=== PATIENT | female | born 1990 | race Caucasian/White ===

== ENCOUNTER 2019-07-30 17:15 | Inpatient (IN) | payer OTHER ==
[~2019-07-30] VITALS: Ht 162.6 cm; Wt 104.0 kg
[2019-07-30] MEDS ORDERED: LACTATED RINGER'S 1000 ML IV STA (17:50)
[2019-07-30] MEDS ORDERED: LR 1,000 ML IV SCH (17:50)
[2019-07-30] MEDS ORDERED: CLINDAMYCIN 900 MG in IV 1 EA IV SCH (18:00)
[2019-07-30] MEDS ORDERED: VANCOMYCIN HCL 1,000 MG, VIAL MATE ADAPTER 1 EACH in D5W 250 ML IV SCH (18:00)
[2019-07-30 18:16] VITALS: BP 137/79
[2019-07-30 18:35] LABS: BASO % 0.3 % (0.0-1.0); EOS # 0.1 10^3/uL (0.0-0.5); EOS % 0.7 % (0.0-3.0); HEMOGLOBIN 10.1 g/dl (12.0-15.5); LYMPH # 1.6 10^3/uL (1.5-5.0); LYMPH % 11.4 % (24.0-44.0); MEAN CORPUSCULAR HGB CONC 31.6 g/dl (32.0-36.5); MEAN CORPUSCULAR VOLUME 82.3 fl (80.0-96.0); MONO # 0.7 10^3/uL (0.0-0.8); MONO % 5.2 % (0.0-5.0); NEUTROPHILS # 11.1 10^3/uL (1.5-8.5); NEUTROPHILS % 81.4 % (36.0-66.0); PLATELET COUNT, AUTOMATED 252 10^3/uL (150-450); RED BLOOD COUNT 3.89 10^6/uL (4.00-5.40); WHITE BLOOD COUNT 13.6 10^3/uL (4.0-10.0)
[2019-07-30 18:39] VITALS: BP 136/79
[2019-07-30] MEDS ORDERED: FENTANYL 2MCG/ML ROPIVACAINE 0.2% IN 0.9% NACL 100ML IVBAG As Ordered ONE (19:20)
--- NOTE | 2019-07-30 19:27 | HPEPDOC ---
Obstetrical History & Physical General Date of Admission Jul 30, 2019 at 18:01 History of Present Illness Patient is a 29-year-old G2, P1 at 40.3 weeks by redating 13 week ultrasound. She complains of contractions since 4:30 AM they became stronger and more consistent since 4 PM today. No loss of fluid or bleeding. Good movement. Chief Complaint: Contractions, term Information Provided By: Patient Care Care: Good Care Dating Final EDC: Jul 27, 2019 Final EDC by: 1st trimester (US) Antepartum Course Height (inches): 64 Pre- weight (lbs.): 194 Admission Weight (lbs.): 228 Change in Weight (lbs.): 34 Past Medical History Past Obstetrical History : Past Obstetrical History: Multigravida (2017 FT [id number]) [employer]ER History: No pertinent history Past Medical History Medical History none Surgical History: Ernest teeth Family History Significant Family History: No pertinent family hx Social History Marital Status: Family situation: Spouse/partner home Psychosocial History: No pertinent psych hx * Smoker: non-smoker Alcohol: Denies Drugs: denies Abuse Violence Screening Have you been hit/kicked/slapp: No Have you been sexually assault: No Imunizations Tdap status: current Influenza Status: current Allergies Coded Allergies: amoxicillin (Verified Allergy, Unknown, 07/30/19) Medications No Active Prescriptions or Reported Meds Physical Examination Physical Examination GENERAL: Alert and oriented times three. BREAST: . ABDOMEN: Gravid and non-tender to touch. FETUS: Is vertex (VTX) by sterile vaginal examination (SVE). HEART RATE: Regular rate and rhythm. LUNGS: Clear to auscultation (CTA). EXTREMITIES: No edema. Vital Signs/I&O Vital Signs Date Time Temp Pulse Resp B/P (MAP) Pulse Ox O2 Delivery O2 Flow Rate FiO2 07/30/19 18:39 94 20 136/79 (98) 07/30/19 18:16 98.0 Room Air Laboratory Data 24H LABS Laboratory Tests 2 07/30/19 18:08: Immature Granulocyte % (Auto) 1.0, Neutrophils (%) (Auto) 81.4H, Lymphocytes (%) (Auto) 11.4L, Monocytes (%) (Auto) 5.2H, Eosinophils (%) (Auto) 0.7, Basophils (%) (Auto) 0.3, Neutrophils # (Auto) 11.1H, Lymphocytes # (Auto) 1.6, Monocytes # (Auto) 0.7, Eosinophils # (Auto) 0.1, Basophils # (Auto) 0.0, Nucleated Red Blood Cells % (auto) 0.0 CBC/BMP Laboratory Tests 07/30/19 18:08 Pertinent Laboratoy Data Blood Type: B+ RBC Antibody Screen: Negative HIV: Negative Hepatitis B: Negative Hepatitis C: Negative Rapid Plasma Reagin: Nonreactive Rubella: Immune Chlamydia/Gonorrhea: Negative Group B Streptococcus: Positive (Clinda resistant) Glucose Tolerance Test: 77 Anatomy Ultrasound Ultrasound Date: Mar 15, 2019 Placenta Location: Anterior Normal Anatomy: Yes Placenta Previa: No Estimated Weight (grams): 371 Steroid Therapy Steroid Therapy: No Vaginal Examination Dilation: 8 cm Effacement: 100% Station: 0 Cervical Consistency: Soft Cervical Position: Anterior Presentation: Cephalic presentation Assessment Variability: Moderate Accelerations: Positive Decelerations: None Tocometer Contractions: Yes Frequency: regular, every 2-5 min. Strength: palpated as strong Multi-drug resistant Organism: No history of MDRO Assessment/Plan Assessment Patient is a 29-year-old G2, P1 at 40.3 weeks by redating 13 week ultrasound. Admit for active labor and expect delivery by . Pain management per patient preference, which was discussed with her. I discussed risks of with patient of failure with section, distress, bleeding, infection, , vaginal or perineal or neighboring organ tear. Currently, fetus is reassuring. GBS is positive and resistant to clindamycin,. There is a need for antibiotics, specifically vancomycin. Plan Admit and orient. Info Print Press Operator and consent. Diet: Clear. Group B Streptococcus (GBS) positive requiring vancomycin. Labs and intravenous (IV) per unit protocol. Counseled on Pitocin and induction of labor (IOL). Lactated Ringers (LR): Bolus 500 mL, then at, 125 mL/hr. Anticipate normal spontaneous delivery (). Pain management per patient preference Katharine Wood MD Jul 30, 2019 19:27
[2019-07-30] MEDS ORDERED: BUTORPHANOL 2 MG/ML INJ (J0595) IV PRN (19:30)
[2019-07-30] MEDS ORDERED: SIMETHICONE 80 MG CHEW TAB PO PRN (19:30)
[2019-07-30] MEDS ORDERED: PROMETHAZINE INJ 25 MG/ML VIAL (J2550) IV PRN (19:30)
[2019-07-30] MEDS ORDERED: CALCIUM CARBONATE 500 MG CHEW U/D PO PRN (19:30)
[2019-07-30] MEDS ORDERED: MOM 30ML SUSPENSION UDC PO PRN (19:30)
[2019-07-30] MEDS ORDERED: OXYTOCIN 30 UNITS IN 0.9% NaCl 500ML IV BAG (J2590) As Ordered ONE (19:44)
[2019-07-30] MEDS ORDERED: OXYTOCIN DRIP 30 UNITS in IV 1 EA IV SCH (20:19)
--- NOTE | 2019-07-30 20:19 | DNPDOC ---
[facility] Delivery Note Delivery Note DATE OF DELIVERY: 07/30/2019 PREDELIVERY DIAGNOSIS: 40-3/7 weeks' gestation and labor. POST DELIVERY DIAGNOSIS: Delivered. PROCEDURE:. Spontaneous vaginal delivery, precipitous. COMPLIANCE MONITOR: Dr. Wood ANESTHESIA: None. ESTIMATED BLOOD LOSS:. 700 mL. FINDINGS: 8 pound 2 ounce, 3680 g male infant, Score, 9/9, nuchal cord times 1. DELIVERY SUMMARY: Patient is a 29-year-old 2 now para 2 who was admitted to labor and delivery for active labor for 4hours. Patient SROM clear around 193. Baby boy head was delivered without difficulty over intact perineum in [place] position at 1940. The nose and mouth were bulb suctioned. x1 nuchal cord was noted. The shoulders were then delivered without difficulty. Cord was then clamped x2 and cut. Infant was handed on mother's belly. Pitocin bolus was started. Perineum was inspected and found to have a 2nd degree laceration. This was repaired with 1% lidocaine 9cc with 2-0 chromic. The placenta was then delivered at 1952 spontaneously intact but appeared to have approximately 10% abruption. Cord had a 3 vessel cord. EBL was. 700 mL. The vagina and perineum were reinspected and no further lacerations were found and hemostasis was good. Fundus was firm. Patient tolerated delivery well. Katharine Wood MD Jul 30, 2019 20:19
[2019-07-30] MEDS ORDERED: IBUPROFEN 600 MG TAB PO PRN (20:30)
[2019-07-30] MEDS ORDERED: LIDOCAINE 1% MDV 20ML VIAL INFIL ONE (20:30)
[2019-07-30] MEDS ORDERED: METHYLERGONOVINE MALEATE 0.2 MG TAB PO PRN (20:30)
[2019-07-30] MEDS ORDERED: RHOGAM 300 MCG (1500 IU) INJ (J2790) IM SCH (20:30)
[2019-07-30] MEDS ORDERED: ONDANSETRON 4MG/2ML VIAL (J2405) IV PRN ×2 (20:30→20:45)
[2019-07-30] MEDS ORDERED: MEASLES,MUMPS,RUBELLA VACCINE INJ (MMR-II) (90707) SC SCH (20:30)
[2019-07-30] MEDS ORDERED: ACETAMINOPHEN 500 MG TAB PO PRN (20:30)
[2019-07-30] MEDS ORDERED: ANUSOL HC CREAM 30GM TOP PRN (20:30)
[2019-07-30] MEDS: IBUPROFEN 800 MG TAB PO PRN (20:31)
[2019-07-30] MEDS ORDERED: LACTATED RINGER'S 1000 ML IV PRN (20:45)
[2019-07-30] MEDS ORDERED: FENTANYL/ROPIVACAINE/NACL BAG 100 ML EPIDURAL SCH (20:45)
[2019-07-30] MEDS ORDERED: diphenhydrAMINE INJ 50MG/ML VIAL (J1200) IV PRN (20:45)
[2019-07-30] MEDS ORDERED: EPIDURAL COMMENT XX SCH (20:45)
[2019-07-30] MEDS ORDERED: ePHEDrine SULFATE 25 MG/5 ML(5MG/ML) SYRINGE IV PRN (20:45)
[2019-07-30] MEDS ORDERED: EPIDURAL/PCA KEYS XX PRN (20:45)
[2019-07-30] MEDS ORDERED: NALOXONE INJ 0.4 MG/1 ML VIAL (J2310) IV PRN (20:45)
[2019-07-30] MEDS ORDERED: REFRIGERATOR IV KEYS XX PRN (20:45)
[2019-07-30] MEDS: DOCUSATE SODIUM 100 MG CAP PO SCH (21:00)
[2019-07-31 00:21] VITALS: BP 98/56
[2019-07-31] MEDS: DIBUCAINE 1% OINTMENT 30GM TOP PRN (00:47)
[2019-07-31 06:00] VITALS: BP 117/66
[2019-07-31] MEDS: IBUPROFEN 800 MG TAB PO PRN ×2 (06:12→14:41)
[2019-07-31 07:02] LABS: HEMATOCRIT 26.6 % (36.0-47.0); HEMOGLOBIN 8.6 g/dl (12.0-15.5); MEAN CORPUSCULAR HEMOGLOBIN 26.8 pg (27.0-33.0); MEAN CORPUSCULAR HGB CONC 32.3 g/dl (32.0-36.5); MEAN CORPUSCULAR VOLUME 82.9 fl (80.0-96.0); PLATELET COUNT, AUTOMATED 226 10^3/uL (150-450); RED BLOOD COUNT 3.21 10^6/uL (4.00-5.40); WHITE BLOOD COUNT 16.8 10^3/uL (4.0-10.0)
--- NOTE | 2019-07-31 07:53 | IPNPDOC ---
Progress Note Date of Service: Jul 31, 2019 Day#: 1 Progress Note SUBJECT: Patient is a 29-year-old 2 now Para 2 status post uncomplicated spontaneous vaginal delivery with post second degree laceration and repair, doing well day # 1. She has been ambulating, voiding spontaneously without issue and tolerating regular diet. Breast feeding without issue. Reports lochia is like a normal period. Patient is ambulating well. Reports some cramping with . Denies any pain. Voiding without difficulty. OBJECTIVE: VITAL SIGNS: Within normal limits, afebrile. Alert and oriented times three. Breasts without erythema and nontender Breath sounds clear to auscultation. Heart rate: Regular rate and rhythm, no murmurs, rubs or gallops. Abdomen: Fundus firm at U-2. Soft, NTTP. Minimal lochia. Perineum intact. ASSESSMENT: Patient is a 29-year-old 2 now Para 2 status post uncomplicated spontaneous vaginal delivery with post second degree laceration and repair, doing well day # 1. Her Vitals within normal limits, afebrile, hemodynamically stable with no evidence of infection. PLAN: 1. Discharge to home today. 2. Tylenol and Motrin for pain. 3. Encourage breast feeding and ambulation. 4. Unsure about contraception for now. VS, I&O, 24H, Fishbone Vital Signs/I&O Vital Signs Date Time Temp Pulse Resp B/P (MAP) Pulse Ox O2 Delivery O2 Flow Rate FiO2 07/31/19 06:00 98.7 105 20 117/66 (83) 97 Room Air I&O- Last 24 Hours up to 6 AM 07/31/19 06:00 Output Total 700 ml Balance -700 ml Laboratory Data 24H LABS Laboratory Tests 2 07/30/19 18:08: Immature Granulocyte % (Auto) 1.0, Neutrophils (%) (Auto) 81.4H, Lymphocytes (%) (Auto) 11.4L, Monocytes (%) (Auto) 5.2H, Eosinophils (%) (Auto) 0.7, Basophils (%) (Auto) 0.3, Neutrophils # (Auto) 11.1H, Lymphocytes # (Auto) 1.6, Monocytes # (Auto) 0.7, Eosinophils # (Auto) 0.1, Basophils # (Auto) 0.0, Nucleated Red Blood Cells % (auto) 0.0, Hepatitis B Surface Antigen (Rapid) NEGATIVE, HIV 1&2 Antibody (2) NEGATIVE, HIV P24 Antigen, Qualitative NEGATIVE 07/31/19 06:34: Nucleated Red Blood Cells % (auto) 0.0 CBC/BMP Laboratory Tests 07/30/19 18:08 07/31/19 06:34 Katharine Wood MD Jul 31, 2019 07:53
[2019-07-31] MEDS: DOCUSATE SODIUM 100 MG CAP PO SCH ×2 (10:17→21:00)
[2019-07-31] MEDS: PRENATAL VITAMINS CHEWABLE TABLET PO SCH (10:17)
[2019-07-31] MEDS: ACETAMINOPHEN 500 MG TAB PO PRN ×2 (12:17→20:59)
--- NOTE | 2019-07-31 15:15 | IPN ---
DATE: 07/31/2019 This patient and her requested circumcision of their male . After discussing the risks and benefits of circumcision, the medical and nonmedical indications of penile block and aftercare, expressed understanding of penile block, aftercare and bleeding, signed the consent form. All questions were answered. 20-minute discussion. We await the clearance by the sign manufacturer.
[2019-07-31 18:00] VITALS: BP 112/60
[2019-08-01] MEDS: IBUPROFEN 800 MG TAB PO PRN ×2 (01:07→09:48)
[2019-08-01] MEDS: ACETAMINOPHEN 500 MG TAB PO PRN (05:53)
[2019-08-01] MEDS ORDERED: PROC1CRE5 TOP (07:06)
[2019-08-01] MEDS ORDERED: IBUP80TA PO (07:06)
[2019-08-01] MEDS ORDERED: DIBU10OI TOP (07:06)
[2019-08-01] MEDS ORDERED: DOCU100C16 PO (07:06)
[2019-08-01] MEDS: DOCUSATE SODIUM 100 MG CAP PO SCH (09:47)
[2019-08-01] MEDS: PRENATAL VITAMINS CHEWABLE TABLET PO SCH (09:47)
[2019-08-01] MEDS: DIBUCAINE 1% OINTMENT 30GM TOP PRN (10:04)
[2019-08-01 11:15] VITALS: BP 109/60
--- NOTE | 2019-08-01 15:26 | DSES ---
DATE OF ADMISSION: 07/30/2019 DATE OF DISCHARGE: 08/01/2019 29-year-old 2 now para 2 admitted at 43 weeks of gestation with history of contractions. She had a spontaneous vaginal delivery of a live male 8 pounds 2 ounces 3680 grams of 9 and 9 at one and five minutes respectively. She had a small second-degree tear which was oversewn in the usual fashion. On discharge her vital signs are blood pressure 112/60, respirations 20, pulse 108 and temperature 98.5. Her hemoglobin on admission was 10.1, hematocrit 32.0, platelets were 252. Discharge hemoglobin 8.6, hematocrit 26.6 and platelets are 226 and she is asymptomatic. We discussed phlebitis, cystitis, mastitis, endometritis, cellulitis, diet, exercise pain manage perineal breast and wound care. On discharge she is normocephalic, atraumatic. Neck full range of motion. Pupils equal and reactive to light. Distal pulses symmetric. No evidence of deep venous thrombosis (DVT), pulmonary embolus (PE) or superficial phlebitis. Chest is clear bilaterally bases. No wheezes or rhonchi. No costovertebral angle (CVA) tenderness. Abdomen soft. Uterus two below. Lochia is moderate for quadrant bowel sounds are noted. Perineum is healing and intact. She has no rashes. She is not complaining of cough, wheeze, shortness of breath or dyspnea on exertion. No nausea, vomiting, diarrhea or constipation. In summary, we have a term gestation delivered a live male . Plans are for breast-feeding doing well and a 6-week checkup at which time control will be discussed. All questions were answered. 20-minute discussion.
== END 2019-08-01 11:15 | disposition home or self-care (01) | DRG 807 ==
LOC: M LDO 17:15 → M LDI 18:01 → M OBS 21:15
PROVIDERS: ADMIT Obstetrics & Gynecology; ATTEND Obstetrics & Gynecology
PROC: 10E0XZZ Delivery of Products of Conception, External Approach (ICD-10-PCS; principal; 2019-07-30)
PROC: 0KQM0ZZ Repair Perineum Muscle, Open Approach (ICD-10-PCS; 2019-07-30)
DX: O48.0 Post-term pregnancy (principal); Z37.0 Single live birth; Z3A.40 40 weeks gestation of pregnancy; Z88.0 Allergy status to penicillin; O99.824 Streptococcus B carrier state complicating childbirth; O69.82X0 Labor and delivery complicated by other cord entanglement, without compression, not applicable or unspecified; O70.1 Second degree perineal laceration during delivery; O45.90 Premature separation of placenta, unspecified, unspecified trimester